=== PATIENT | female | born 1960 | race Caucasian/White ===

== ENCOUNTER 2022-10-27 00:55 | Day surgery (SDC) | payer OTHER, MEDICAID, SELFPAY ==
[2022-10-26 13:17] VITALS: BMI 23.5
[2022-10-27] VITALS (9 sets, daily range): BP systolic 125–171; BP diastolic 85–108; PULSE 54–67; RESP 10–17; TEMP 36.4; O2SAT 97–100; BMI 23.5
--- NOTE | 2022-10-27 08:49 | P.SEDATION_ITS ---
Moderate Sedation Note-Pt Data Patient Data Diagnosis: History of stroke Present Complaint: history of stroke Procedure to be performed/Plan: multiplanar transesophageal echocardiography with color flow pulse wave Doppler Agitated saline study moderate sedation Allergies Allergy/AdvReac Type Severity Reaction Status Date / Time No Known Allergies Allergy Verified 10/27/22 07:54 Home Medications Medication Instructions Recorded Confirmed Type lisinopril 5 mg tablet 10 mg PO DAILY 04/07/22 10/26/22 History aspirin 81 mg tablet 81 mg PO DAILY 10/26/22 10/26/22 History atorvastatin 80 mg tablet 40 mg PO DAILY 10/26/22 10/26/22 History lisinopril 10 mg tablet 10 mg PO DAILY 10/26/22 10/26/22 History metoprolol succinate 25 mg 25 mg PO HS 10/26/22 10/26/22 History tablet,extended release 24 hr phentermine 37.5 mg tablet 37.5 mg PO DAILY PRN weight loss 10/26/22 10/26/22 History Sedation/Anesthesia: No previous sedation/anesthesia problems (including family history). [facility] [place] Past Medical History Medical History delivery delivered High cholesterol Hypertension Surgical History Surgical History History of ear surgery Family History Family History Other Bone cancer Breast cancer Heart disease Social History Social History Smoking status: Never smoker Alcohol intake: current Alcohol use details: 1 per month Substance use: never Substance use type: does not use Living arrangements: with family Occupation/Education: occupation Additional occupation/education comments: [employer] Gender identity (if verbalized by the patient): Female Sexual Orientation (if Verbalized by the Patient): Straight or Heterosexual Spiritual care concerns: No Mod Sed Physical Exam Physical Exam Pre Procedural Exam: Normal: Appearance, Eyes, Ears, Nose, Neck, Throat, Airway, Lungs, Heart Size, Heart Rate, Heart Rhythm, Neuro Exam, Abdomen, Extremities and Skin Hours since solid foods: 12 Hours since liquid intake: 12 Mallampati Classification: class II Internal Medicine - PN: Obj Da Vital Signs Vital Signs: Vital Signs - 24 hr 10/27/22 08:06 Temperature 36.4 C Pulse Rate 61 Respiratory Rate 15 Blood Pressure 136/98 H Pulse Oximetry 100 Oxygen Delivery Room Air ASA Classification/Sedation ASA Classification/Sedation ASA Class: II Emergent: No Risks: Risks, benefits and alternatives explained and patient/family accepted plan for sedation. Patient re-evaluated immediately prior to sedation.
--- NOTE | 2022-10-27 09:14 | WPDTEECHO ---
[facility] TransEsophageal Echocardiogram Date of procedure: 10/27/22 Procedure Type: 1. Multiplanar transesophageal echocardiography with color flow and pulse wave Doppler 2. Agitated saline study 3. Moderate sedation Diagnosis: high blood pressure, history of stroke Indications: history of stroke Image Quality: good Findings: after discussing the risks, benefits alternatives of the procedure the patient agreeable via verbal and written informed consent. Risks discussed included esophageal rupture perforation, adverse reaction to anesthesia, , need for surgery, bleeding, pain, infection, sore throat. After establishing continuous telemetry monitoring, pulse oxygenation and serial blood pressure assessments time-out was taken the procedure started. Procedure start time 8:53 a.m. Procedure stop time 9:07 a.m. Medications used a total of 75 mcg of fentanyl in divided dosages as well as 3 mg of Versed and divided dosages. Hurricaine spray to the hypopharynx x2 for topical anesthetic. Medications were administered patient was monitored by Whit Tyler RN complications: None Blood loss: None Findings: Normal left ventricular size and function ejection fraction of 70-75%. Normal mitral valve with mild mitral regurgitation. Normal tricuspid valve with trace tricuspid regurgitation. The aortic valve is trileaflet and no significant sclerosis. Minimal AI. Pulmonic valve is normal without significant pulmonic insufficiency. No pericardial effusion. The normal aortic root size with minimal arthrosclerotic plaquing. Left atrial appendage is normal without mass or thrombus. Pulsed waveVelocities of 80 centimeters/second. normal right ventricular size and function. Normal right atrial size. Normal left atrial size. Atrial septum is intact with out color flow or agitated saline evidence of shunting. Conclusions: 1. Normal left ventricular size and function ejection fraction 70-75% 2. Mild mitral regurgitation 3. Negative agitated saline study 4. Intact atrial septum 5. Normal left atrial appendage 6. Moderate sedation
== END 2022-10-27 10:15 | disposition home or self-care (01) ==
PROVIDERS: PCP Family Medicine; Visit Provider Internal Medicine Cardiovascular Disease
PROC: (CPT 93312; principal; 2022-10-27 09:00)
DX: I34.0 Nonrheumatic mitral (valve) insufficiency (principal); R07.89 Other chest pain; I10 Essential (primary) hypertension; K21.9 Gastro-esophageal reflux disease without esophagitis; Z86.73 Personal history of transient ischemic attack (TIA), and cerebral infarction without residual deficits; Z79.02 Long term (current) use of antithrombotics/antiplatelets; Z79.82 Long term (current) use of aspirin
CPT/HCPCS: 93312; 93320; 93325

== ENCOUNTER 2022-11-10 00:49 | Day surgery (SDC) | payer OTHER, MEDICAID, SELFPAY ==
[2022-11-09 17:00] VITALS: BMI 23.5
[2022-11-10] VITALS (7 sets, daily range): BP systolic 126–159; BP diastolic 87–99; PULSE 54–60; RESP 14–18; TEMP 36.9; O2SAT 98–100
--- NOTE | 2022-11-10 08:30 | SUR.OPER ---
DR. SANCHEZ HERE TO BEDSIDE TO SEE PT. [employer] REP, SHAAN, HERE.
--- NOTE | 2022-11-10 08:35 | WPDHPUPDATE1 ---
History and Physical Update Update Date/Time: 11/10/22 08:35 Patient is a 62-year-old female with recent stroke, followed by Dr. Bro. Evaluation was unremarkable for etiology. She has been taking aspirin. She is here for implantation of a loop recorder to evaluate for underlying paroxysmal atrial fibrillation. She has a history of palpitations, hypertension and atypical chest pain. She takes aspirin. She is feeling well today and has been NPO. History and Physical has been reviewed, including an updated exam of the patient. There are NO changes in the patient's condition. Risks, benefits, and alternatives have been discussed and questions answered. Patient agrees to proceed with procedure.
--- NOTE | 2022-11-10 08:37 | P.SEDATION_ITS ---
Moderate Sedation Note-Pt Data Patient Data Diagnosis: History of stroke Present Complaint: history of stroke, palpitations Procedure to be performed/Plan: implantation of a Medtronic loop recorder under local anesthesia, less likely conscious sedation Allergies Allergy/AdvReac Type Severity Reaction Status Date / Time IV contrast Allergy Severe Anaphylaxis Uncoded 11/10/22 07:34 Home Medications Medication Instructions Recorded Confirmed Type aspirin 81 mg tablet 81 mg PO DAILY 10/26/22 11/10/22 History atorvastatin 80 mg tablet 40 mg PO DAILY 10/26/22 11/10/22 History lisinopril 10 mg tablet 10 mg PO DAILY 10/26/22 11/10/22 History metoprolol succinate 25 mg 25 mg PO HS 10/26/22 11/09/22 History tablet,extended release 24 hr phentermine 37.5 mg tablet 37.5 mg PO DAILY PRN weight loss 10/26/22 11/09/22 History Sedation/Anesthesia: No previous sedation/anesthesia problems (including family history). [facility] Past Medical History Medical History delivery delivered High cholesterol History of stroke July 2022, visual impairment, CT, MRI confirmed stroke, workup unremarkable, negative bubble study Hypertension Surgical History Surgical History History of ear surgery Family History Family History Other Bone cancer Breast cancer Heart disease Social History Social History Social History: Smoking status: Never smoker Second hand tobacco smoke exposure: No Alcohol intake: current Drinks per week: 2 Alcohol use details: 1 per month Substance use: never Substance use type: does not use Living arrangements: with family Occupation/Education: occupation Additional occupation/education comments: [employer] Gender identity (if verbalized by the patient): Female Sexual Orientation (if Verbalized by the Patient): Straight or Heterosexual Spiritual care concerns: No Mod Sed Physical Exam Physical Exam Pre Procedural Exam: Normal: Appearance, Eyes, Ears, Nose, Neck, Throat, Airway, Lungs, Heart Size, Heart Rate, Heart Rhythm, Neuro Exam, Abdomen, Extremities and Skin ( skin along the left parasternal area is without lesions) Hours since solid foods: 12 Hours since liquid intake: 12 Mallampati Classification: class II Internal Medicine - PN: Obj Da Vital Signs Vital Signs: Vital Signs - 24 hr 11/10/22 07:44 Temperature 98.5 F Pulse Rate 56 L Respiratory Rate 14 Blood Pressure 140/92 H Pulse Oximetry 99 Oxygen Delivery Room Air ASA Classification/Sedation ASA Classification/Sedation ASA Class: II Emergent: No Risks: Risks, benefits and alternatives explained and patient/family accepted plan for sedation. Patient re-evaluated immediately prior to sedation.
--- NOTE | 2022-11-10 09:04 | PM.OP ---
Procedure Note - Brief Procedure Note - Brief Date of procedure: 11/10/22 CVA, palpitations Post-op diagnosis: Same Procedure performed: implantation of a [employer]tr[employer] loop recorder Surgeon: Magali Guzman MD Description of procedure: uneventful loop recorder implant Complications: None Condition: Stable Disposition: Observation
--- NOTE | 2022-11-10 09:06 | P.OP_ITS ---
Procedure Note - Detailed Date of Procedure 11/10/22 Pre-op Diagnosis CVA, palpitations Post-op Diagnosis Same Procedure Performed implantation of a Medtronic loop recorder under local anesthesia Surgeon Magali Guzman MD Anesthesia Local Indications recent stroke, palpitations, evaluating for atrial fibrillation Findings NSR Description of Procedure After informed consent, the patient's left parasternal area was prepped and draped in usual fashion. She received 1% lidocaine over the 3rd-4th intercostal space and a Medtronic LINQ loop recorder ( Medtronic LNQ22, Serial [id number]) was inserted in the standard fashion. Hemostasis is was obtained with local pressure. The incision was closed with skin adhesive and dressed with a clean large Band-Aid. She tolerated the procedure well with no complications. The device was interrogated and R-wave sensing was found to be good, 0.21 mV. Follow-up: The patient is given information about remote monitoring, will follow-up in our office in 1 week for an incision check Implants Medtronic LINQ loop recorder ( Med[employer]onic [id number], Serial [id number]) Estimated Blood Loss 1 (cc) Complications None Condition Stable Disposition Observation
== END 2022-11-10 10:05 | disposition home or self-care (01) ==
PROVIDERS: PCP Family Medicine; Visit Provider Internal Medicine Cardiovascular Disease
PROC: (CPT 33285; principal; 2022-11-10 08:30)
DX: R00.2 Palpitations (principal); Z86.73 Personal history of transient ischemic attack (TIA), and cerebral infarction without residual deficits; I10 Essential (primary) hypertension; E78.00 Pure hypercholesterolemia, unspecified; Z79.82 Long term (current) use of aspirin
CPT/HCPCS: 33285; C1764